=== PATIENT | male | born 1970 | race Caucasian/White ===

== ENCOUNTER 2017-06-30 06:11 | Emergency (ER) | payer OTHER ==
[~2017-06-30] VITALS: Ht 188 cm; Wt 108.9 kg
[~2017-06-30 06:11] MED LIST: FLUO-125 PO; FURO20TA PO; HYDRPOW88 XX; NOR10T PO; PROP60CA8 PO
[2017-06-30] MEDS ORDERED: TETRACAINE HCL 0.5% OPTH(EYE) SOLN 4ML EACHEYE ONE (06:45)
[2017-06-30] MEDS ORDERED: FLUORESCEIN SOD 1 MG TEST STRIP OP ONE (06:45)
[2017-06-30 07:13] VITALS: BP 148/72
== END 2017-06-30 08:18 | disposition home or self-care (01) ==
LOC: ER 06:11
DX: S05.02XA Injury of conjunctiva and corneal abrasion without foreign body, left eye, initial encounter (principal); S05.01XA Injury of conjunctiva and corneal abrasion without foreign body, right eye, initial encounter; H10.33 Unspecified acute conjunctivitis, bilateral; X58.XXXA Exposure to other specified factors, initial encounter; Y93.89 Activity, other specified; Y92.89 Other specified places as the place of occurrence of the external cause; Y99.8 Other external cause status

== ENCOUNTER 2019-01-01 17:30 | Emergency (ER) | payer OTHER ==
[~2019-01-01 17:30] MED LIST changes: +FURO1TAB33 PO; -FURO20TA PO; +PROP60CA34 PO; -PROP60CA8 PO
[2019-01-01] MEDS ORDERED: ACETAMINOPHEN 325 MG RECT SUPP PR ONE (20:04)
[2019-01-01] MEDS ORDERED: LORazepam 2MG/ML-1ML VIAL ONE (20:05)
== END 2019-01-01 18:10 | disposition left against medical advice (07) ==
LOC: ER 17:30
DX: R06.02 Shortness of breath (principal); Z53.21 Procedure and treatment not carried out due to patient leaving prior to being seen by health care provider

== ENCOUNTER 2019-02-11 10:48 | Emergency (ER) | payer OTHER ==
[~2019-02-11] VITALS: Ht 188 cm; Wt 113.4 kg
[~2019-02-11 10:48] MED LIST changes: -FLUO-125 PO; -FURO1TAB33 PO; -HYDRPOW88 XX; +POTA10TA51 PO; -PROP60CA34 PO
[2019-02-11] MEDS ORDERED: methylPREDNISolone SOD SUCC 125 MG/2 ML VL IV ONE (11:15)
[2019-02-11] MEDS ORDERED: IPRATROPIUM BROM 0.5 MG/2.5ML INH SOL NEB ONE ×2 (11:15→16:45)
[2019-02-11] MEDS ORDERED: ALBUTEROL SULF 2.5 MG/0.5ML(0.5%) NEB SOLN NEB ONE ×2 (11:15→16:45)
[2019-02-11] MEDS ORDERED: FUROSEMIDE 40 MG/4 ML VIAL IV ONE (11:30)
[2019-02-11 11:31] LABS: Basophils # (auto) 0 uL; Basophils % (auto) 0.4 % (0.0-2.0); Eosinophils # (auto) 0.2 uL; Eosinophils % (auto) 4.8 % (0.0-7.0); Hematocrit 35.6 % (41.0-53.0); Hemoglobin 12.4 g/dL (13.5-17.5); Lymphocytes # (auto) 0.9 uL; Lymphocytes % (auto) 21.3 % (10.0-50.0); Mean Corpuscular Hemoglobin 33.7 pg (28.0-32.0); Mean Corpuscular Hgb Conc. 34.9 g/dL (32.0-36.0); Mean Corpuscular Volume 96.7 fL (80.0-100.0); Monocytes # (auto) 0.3 uL; Monocytes % (auto) 8.1 % (0.0-12.0); Neutrophils # (auto) 2.7 uL; Neutrophils % (auto) 65.4 % (37.0-80.0); Nucleated Red Blood Cells % 0.1 %; Platelet Count (auto) 41 10^3/uL (140-450); Red Blood Cells 3.68 10^6/uL (4.5-5.90); Red Cell Distribution Width 17.7 % (11.8-14.3); White Blood Cell 4.1 10^3/uL (4.4-10.8)
[2019-02-11] MEDS ORDERED: LEVOFLOXACIN 500MG 100 ML IV ONE (11:45)
[2019-02-11 11:47] LABS: Alanine Aminotransferase 89 U/L (16-61); Albumin 2.7 g/dL (3.4-5.0); Anion Gap 8 (5-15); Aspartate Aminotransferase 121 U/L (15-37); BUN/Creatinine Ratio 18.1; Blood Urea Nitrogen 19 mg/dL (7-18); Calcium 8.2 mg/dL (8.5-10.1); Carbon Dioxide 26 mmol/L (21-32); Chloride 110 mmol/L (98-107); GFR African American 97 mL/min; GFR Non-African American 80 mL/min; Glucose 113 mg/dL (74-106); Potassium 3.3 mmol/L (3.5-5.1); Sodium 144 mmol/L (136-145)
[2019-02-11 11:52] LABS: Alkaline Phosphatase 148 U/L (45-117); Bilirubin, Total 3.3 mg/dL (0.2-1.0); Total Protein 6.1 g/dL (6.4-8.2)
[2019-02-11 12:06] LABS: Amylase 69 U/L (25-115); Lipase 105 U/L (73-393)
[2019-02-11 12:17] LABS: INR 1.32 (0.9-1.15); Partial Thromboplastin Time 31.4 sec (23.64-32.05)
[2019-02-11] MEDS ORDERED: HYDROmorphone HCL 2 MG/ML VL IV ONE (12:30)
[2019-02-11] MEDS ORDERED: ONDANSETRON HCL 4 MG/2 ML VIAL IV ONE (12:30)
[2019-02-11] MEDS ORDERED: MORPHINE SULFATE 4 MG/ML SYR/VIAL IV ONE (12:30)
[2019-02-11 18:13] VITALS: BP 137/59
[2019-02-11] MEDS ORDERED: ALBU0.5N2 IN (18:55)
[2019-02-11] MEDS ORDERED: FURO1TAB31 PO (18:55)
[2019-02-11] MEDS ORDERED: SPIR50TA2 PO (18:55)
[2019-02-11] MEDS ORDERED: POTASSIUM CHL 20 Meq TABLET PO ONE (19:00)
== END 2019-02-11 19:42 | disposition home or self-care (01) ==
LOC: ER 10:48
DX: J90 Pleural effusion, not elsewhere classified (principal); D69.6 Thrombocytopenia, unspecified; K74.60 Unspecified cirrhosis of liver; K72.10 Chronic hepatic failure without coma; R60.1 Generalized edema; Z87.442 Personal history of urinary calculi
CPT/HCPCS: 36415; 71250; 74176; 80053; 82140; 82150; 83605; 83690; 84484; 85025; 85610; 85730; 87040; 93005; 94640; 96365; 96375; 99284; J1170; J1940; J1956; J2405; J2930; J7611; J7644

== ENCOUNTER 2019-04-14 13:01 | Inpatient (IN) | payer OTHER ==
[~2019-04-14] VITALS: Ht 185.4 cm; Wt 114.5 kg
[~2019-04-14 13:01] MED LIST changes: +ALBU0.5N2 IN; +FURO1TAB31 PO; +SPIR50TA2 PO
[2019-04-14] MEDS ORDERED: ONDANSETRON HCL 4 MG/2 ML VIAL IV ONE (13:30)
[2019-04-14] MEDS ORDERED: PANTOPRAZOLE 40 MG/10 ML VIAL INJ IV ONE (13:30)
[2019-04-14 13:57] LABS: Eosinophils # (auto) 1.6 uL; Hematocrit 23.9 % (41.0-53.0); Hemoglobin 8.1 g/dL (13.5-17.5); Lymphocytes # (auto) 3.6 uL; Lymphocytes % (auto) 20.6 % (10.0-50.0); Mean Corpuscular Hemoglobin 33.8 pg (28.0-32.0); Nucleated Red Blood Cells % 0.1 %; Platelet Count (auto) 93 10^3/uL (140-450)
[2019-04-14 13:59] LABS: Basophils # (auto) 0 uL; Basophils % (auto) 0.3 % (0.0-2.0); Eosinophils % (auto) 9.4 % (0.0-7.0); Mean Corpuscular Hgb Conc. 33.9 g/dL (32.0-36.0); Mean Corpuscular Volume 99.5 fL (80.0-100.0); Monocytes # (auto) 1.2 uL; Monocytes % (auto) 6.9 % (0.0-12.0); Neutrophils % (auto) 62.8 % (37.0-80.0); Red Cell Distribution Width 17.3 % (11.8-14.3); White Blood Cell 17.6 10^3/uL (4.4-10.8)
[2019-04-14 14:15] LABS: Albumin 1.8 g/dL (3.4-5.0); BUN/Creatinine Ratio 27.7; Calcium 6.7 mg/dL (8.5-10.1); INR 1.58 (0.9-1.15); Partial Thromboplastin Time 36.2 sec (23.64-32.05); Potassium 4.4 mmol/L (3.5-5.1)
[2019-04-14 14:20] LABS: Bilirubin, Total 2.9 mg/dL (0.2-1.0); Total Protein 4.3 g/dL (6.4-8.2)
[2019-04-14] MEDS: OCTREOTIDE ACETATE 500 MCG in SODIUM CHL 0.9% 99 ML IV SCH ×2 (14:27→23:25)
[2019-04-14] MEDS ORDERED: ONDANSETRON HCL 4 MG/2 ML VIAL IV PRN (14:45)
[2019-04-14] MEDS ORDERED: MORPHINE SULF INJ 2 MG/ML SYRINGE 1ML IV PRN ×2 (14:45)
[2019-04-14] MEDS ORDERED: NITROGLYCERIN 0.4 MG SL TAB SL PRN (14:45)
[2019-04-14] MEDS ORDERED: LACTULOSE 20Gm/30ML SOLN PO ONE (14:45)
[2019-04-14] MEDS: PIPERACILLIN-TAZOB 3.375GM 100 ML IV SCH ×2 (15:57→18:32)
[2019-04-14] MEDS ORDERED: FUROSEMIDE 40 MG/4 ML VIAL IV ONE (16:45)
[2019-04-14] MEDS ORDERED: IPRATROPIUM BROM 0.5 MG/2.5ML INH SOL NEB PRN (16:45)
[2019-04-14] MEDS ORDERED: ALBUTEROL SULF 2.5 MG/0.5ML(0.5%) NEB SOLN NEB PRN (16:45)
[2019-04-14] MEDS: PROCHLORPERAZINE EDISYLATE 5 MG/ML 2ML VIAL IV PRN (16:58)
[2019-04-14 17:09] LABS: Basophils # (auto) 0.1 uL; Basophils % (auto) 0.6 % (0.0-2.0); Eosinophils # (auto) 1.3 uL; Eosinophils % (auto) 7.5 % (0.0-7.0); Hemoglobin 8.2 g/dL (13.5-17.5); Lymphocytes # (auto) 3.4 uL; Lymphocytes % (auto) 19.1 % (10.0-50.0); Mean Corpuscular Hemoglobin 33.9 pg (28.0-32.0); Mean Corpuscular Hgb Conc. 32.8 g/dL (32.0-36.0); Mean Corpuscular Volume 103.3 fL (80.0-100.0); Monocytes # (auto) 1.1 uL; Neutrophils # (auto) 11.7 uL; Neutrophils % (auto) 66.8 % (37.0-80.0); Nucleated Red Blood Cells % 0.1 %; Platelet Count (auto) 108 10^3/uL (140-450); Red Blood Cells 2.42 10^6/uL (4.5-5.90); Red Cell Distribution Width 17.6 % (11.8-14.3); White Blood Cell 17.5 10^3/uL (4.4-10.8)
--- NOTE | 2019-04-14 18:38 | NUR ---
Respiratory note: NO PRN TX GIVEN AT THIS TIME, NOT INDICATED. PT DENIES SOB OR TAKING TXS OR MDI'S AT HOME. SPO2 95% ON 4L N/C, HR 108, RR 17. BREATH SOUNDS DIMINISHED THROUGHOUT.
[2019-04-14 18:39] VITALS: BP 121/49
[2019-04-14 19:45] VITALS: BP 125/66
--- NOTE | 2019-04-14 19:45 | NUR ---
Admit to [facility] admitted to [facility] via gurney on fiberglass roller, and portable 02. Patient transferred to bed, connected to unit monitoring and 3L oxygen via nasal cannula, and weighed by bed scale. Left and right forearm IV - clean/dry/intact. Patient oriented to ADITI MEDRANO, primary RN, unit, room, bed, and unit policies regarding patient care and visiting hours. All questions and concerns addressed, patient verbalized understanding.
[2019-04-14] MEDS ORDERED: HYDR50TA69 PO (20:58)
--- NOTE | 2019-04-14 21:30 | NUR ---
HOSPITALIST PAGED HOSPITALIST AWAITING CALL BACK.
--- NOTE | 2019-04-14 21:35 | NUR ---
HOSPITALIST HOSPITALIST CALLED BACK, MADE AWARE OF PATIENT BEING RESTLESS AND AGITATED. GAVE ORDERS TO CONTINUE HOME MEDICATION - HYDROXYZINE HCL 50ML PO. WILL CONTINUE TO MONITOR.
[2019-04-14] MEDS: PANTOPRAZOLE 40 MG/10 ML VIAL INJ IV SCH (22:04)
[2019-04-14] MEDS: hydrOXYzine 25 MG TAB or CAP PO PRN (22:05)
[2019-04-14] MEDS ORDERED: OCTREOTIDE ACETATE 500 MCG/ML VL ONE (23:19)
[2019-04-15] VITALS (24 sets, daily range): BP systolic 97–140; BP diastolic 27–60
[2019-04-15 05:45] LABS: Basophils # (auto) 0.1 uL; Monocytes # (auto) 1.5 uL; Monocytes % (auto) 8.1 % (0.0-12.0); Nucleated Red Blood Cells % 0.1 %
[2019-04-15 05:47] LABS: Basophils % (auto) 0.4 % (0.0-2.0); Eosinophils # (auto) 1.8 uL; Eosinophils % (auto) 9.7 % (0.0-7.0); Lymphocytes # (auto) 3.7 uL; Lymphocytes % (auto) 19.9 % (10.0-50.0); Mean Corpuscular Hemoglobin 34.7 pg (28.0-32.0); Mean Corpuscular Hgb Conc. 34.8 g/dL (32.0-36.0); Mean Corpuscular Volume 99.6 fL (80.0-100.0); Neutrophils # (auto) 11.6 uL; Neutrophils % (auto) 61.9 % (37.0-80.0); Platelet Count (auto) 84 10^3/uL (140-450); Red Blood Cells 2.01 10^6/uL (4.5-5.90); Red Cell Distribution Width 17.3 % (11.8-14.3); White Blood Cell 18.6 10^3/uL (4.4-10.8)
[2019-04-15 05:53] LABS: INR 1.65 (0.9-1.15)
--- NOTE | 2019-04-15 06:00 | NUR ---
PAGED HOSPITALIST AWAITING CALL BACK.
[2019-04-15 06:01] LABS: Calcium 6.3 mg/dL (8.5-10.1); Potassium 4.5 mmol/L (3.5-5.1)
[2019-04-15 06:03] LABS: BUN/Creatinine Ratio 25.2
[2019-04-15] MEDS: PIPERACILLIN-TAZOB 3.375GM 100 ML IV SCH ×5 (06:13→23:48)
--- NOTE | 2019-04-15 06:48 | NUR ---
PAGED HOSPITALIST AWAITING CALL BACK.
--- NOTE | 2019-04-15 07:10 | NUR ---
END OF SHIFT REPORT GIVEN TO DAY SHIFT RN. CARE ENDORSED.
--- NOTE | 2019-04-15 07:30 | NUR ---
RECEIVED PATIENT SITTING UP IN THE BED, A/O TIMES 4, O2 AT 3L BY N/C, WHICH HE TAKES ON AND OFF, STATES HE GETS UP TO THE BR, OCTREOTIDE INFUSING INTO THE LAC AT 10ML/HR BY THE IV PUMP, ANTIBIOTICS INFUSING INTO THE RAC AT 34ML/HR BY THE IV PUMP DENIES PAIN AND STATES HE HAS NOT HAD ANY BLEEDING AT THIS TIME
--- NOTE | 2019-04-15 08:05 | NUR ---
DR FULLER GI IN TO SEE THE PATIENT AND ORDERED 1 UNIT OF PRBCS AND 3 UNITS OF FFP TO BE GIVEN AND STATED HE IS GOING TO TRY AND DO A EGD TONIGHT
[2019-04-15] MEDS ORDERED: PHYTONADIONE (VIT K)10 MG/ML 1ML VIAL IV ONE (08:15)
--- NOTE | 2019-04-15 09:10 | NUR ---
I UNIT OF PRBC, EXPLAIN TO THE PATIENT THE POSSIBLE REACTIONS VERBALIZED UNDERSTANDINGS STARTED
--- NOTE | 2019-04-15 09:25 | NUR ---
CONSENTS SIGNED FOR EGD AND THORACENTESIS
[2019-04-15] MEDS: OCTREOTIDE ACETATE 500 MCG in SODIUM CHL 0.9% 99 ML IV SCH ×2 (09:56→20:12)
[2019-04-15] MEDS ORDERED: FUROSEMIDE 40 MG/4 ML VIAL IV SCH (10:00)
--- NOTE | 2019-04-15 10:15 | NUR ---
FAMILY IN TO VISIT WITH THE PATIENT
[2019-04-15] MEDS: PANTOPRAZOLE 40 MG/10 ML VIAL INJ IV SCH ×2 (10:21→22:00)
--- NOTE | 2019-04-15 10:21 | NUR ---
EXPLAIN MEDICATIONS TO THE PATIENT REGARDING THE DOSAGE, USAGE AND THE SIDE EFFECTS, VERBALIZED THAT HE UNDERSTOOD AND MEDS GIVEN ORDERED
[2019-04-15] MEDS: hydrOXYzine 25 MG TAB or CAP PO PRN ×2 (10:32→22:01)
--- NOTE | 2019-04-15 10:32 | NUR ---
VISTARIL GIVEN FOR HIS RESTLESS LEG AND ANXIETY
--- NOTE | 2019-04-15 10:45 | NUR ---
PLACED 22G SALINE LOCK TO THE RT WRIST 1/ ATTEMPTS USING STERILE TECHNIQUE
--- NOTE | 2019-04-15 11:00 | NUR ---
DR PRESLEY HERE AND PERFORMED A RIGHT CHEST THORACENTESIS ON THE PATIENT AND REMOVED [id number] OF FLUID WHICH WAS SENT TO THE LAB FOR TEST
--- NOTE | 2019-04-15 11:25 | NUR ---
DR EARLY IN TO SEE THE PATIENT
--- NOTE | 2019-04-15 12:30 | NUR ---
FIRST UNIT OF FFP BEING STARTED
[2019-04-15] MEDS: FUROSEMIDE 40 MG/4 ML VIAL IV SCH (12:49)
--- NOTE | 2019-04-15 13:30 | NUR ---
PATIENT SITTING UP IN THE BED WITH EYES CLOSED APPEARS TO BE RESTING AT THIS TIME
[2019-04-15 13:53] LABS: Basophils # (auto) 0.1 uL; Basophils % (auto) 0.6 % (0.0-2.0); Eosinophils # (auto) 2.1 uL; Hemoglobin 8.1 g/dL (13.5-17.5); Lymphocytes # (auto) 3.6 uL; Mean Corpuscular Volume 98.7 fL (80.0-100.0)
[2019-04-15 13:55] LABS: Eosinophils % (auto) 11.1 % (0.0-7.0); Hematocrit 23.7 % (41.0-53.0); Lymphocytes % (auto) 19.3 % (10.0-50.0); Mean Corpuscular Hemoglobin 33.8 pg (28.0-32.0); Mean Corpuscular Hgb Conc. 34.2 g/dL (32.0-36.0); Monocytes # (auto) 1.4 uL; Monocytes % (auto) 7.2 % (0.0-12.0); Neutrophils # (auto) 11.6 uL; Neutrophils % (auto) 61.8 % (37.0-80.0); Nucleated Red Blood Cells % 0.1 %; Platelet Count (auto) 96 10^3/uL (140-450); Red Cell Distribution Width 18.6 % (11.8-14.3); White Blood Cell 18.7 10^3/uL (4.4-10.8)
--- NOTE | 2019-04-15 14:30 | NUR ---
GETTING UP TO THE SIDE OF THE BED TO URINATE , NO HELP NEEDED
--- NOTE | 2019-04-15 14:41 | NUR ---
Respiratory note: PT ASSESSED FOR PRN. PT AWAKE, ALERT AND RESPONSIVE. NO DISTRESS AT THIS TIME. B/S ARE CLEAR AND DIMINISHED THROUGHOUT. NO COMPLAINT OF SOB. NO TREATMENT INDICATED AT THIS TIME. INFORMED PT TO HIT CALL LIGHT IF BECOMES SOB AND RT WILL BE PAGED.
--- NOTE | 2019-04-15 15:00 | NUR ---
FIRST UNIT OF FFP FINISHED AND NO REACTION
--- NOTE | 2019-04-15 15:30 | NUR ---
SECOND UNIT OF FFP BEING STARTED
[2019-04-15 15:46] LABS: Urine WBC None Seen /hpf (0 - 3)
--- NOTE | 2019-04-15 16:10 | NUR ---
SITTING UP IN BED STATES HE FEELS A LITTLE BETTER EXPRESS TO HIM THAT I DON'T KNOW IF HE IS GOING TO HAVE THE EGD DONE TONIGHT, BECAUSE THE GI LAB HAD A FULL SCHEDULE
[2019-04-15 16:11] LABS: Urine Bacteria NONE SEEN /hpf (None Seen); Urine Blood 2+ /uL (Negative); Urine Specific Gravity 1.006 (1.001-1.035)
--- NOTE | 2019-04-15 16:34 | NUR ---
FAMILY BACK TO VISIT
--- NOTE | 2019-04-15 16:47 | NUR ---
CALLED THE GI LAB AND STATED THE PATIENT WILL PROBABLY GO TONIGHT FOR EGD ABOUT 1859, INFORMED THE AND PATIENT
--- NOTE | 2019-04-15 17:45 | NUR ---
BACK TO VISIT WITH THE PATIENT
--- NOTE | 2019-04-15 17:52 | NUR ---
MOM AND DAD INTO SEE THE PATIENT
--- NOTE | 2019-04-15 18:16 | NUR ---
SECOND UNIT OF FFP FINISHED AND PATIENT HAD NO REACTION, ANTIBIOTICS INFUSING INTO THE RT WRIST BY THE IV PUMP, PATIENT IS GETTING ANXIOUS ABOUT WAITING FOR THE EGD, A/O TIMES 4, MOM AND DAD AT THE BEDSIDE, ANTIBIOTICS INFUSING INTO THE RT WRIST BY THE IV, O2 BY R/A, RAC WITH BLOOD PRODUCTS BEING TRANSFUSED USING THE IV PUMP, OCTREOTIDE AT 10ML/HR INFUSING BY THE IV PUMP, PATIENT STATES HIS LEGS ARE GETTING RESTLESS, APPLIED SCD AND WARM BLANKET, STATES NOT PAIN , LAST UNIT OF FFP BEING GIVEN, WILL CONTINUE TO MONITOR AND GIVE REPORT TO THE NEXT SHIFT
--- NOTE | 2019-04-15 19:10 | NUR ---
OPENING SHIFT RECEIVED REPORT FROM DAY SHIFT RN. ASSUMED CARE OF PATIENT. PATIENT IN BED WATCHING TV WITH NO SIGN OR SYMPTOMS OF SOB, PAIN OR DISTRESS. CURRENTLY ON ROOM AIR, 02 SAT - 91%. RIGHT ANTECUBITAL, RIGHT WRIST , AND LEFT ANTECUBITAL IV - CLEAN/DRY/INTACT. UPDATED PATIENT ON PLAN OF CARE. BED IN LOWEST POSITION, SIDE RAILS UP X2, CALL LIGHT WITHIN REACH. WILL CONTINUE TO MONITOR.
[2019-04-15] MEDS ORDERED: fentaNYL CITRATE 100 MCG/2 ML VL ONE ×3 (20:04→20:13)
[2019-04-15] MEDS ORDERED: LIDOCAINE VISCOUS 2% 15ML UD ONE (20:04)
[2019-04-15] MEDS ORDERED: SODIUM CHLORIDE LOCK 10 ML ONE ×2 (20:04)
[2019-04-15] MEDS ORDERED: MIDAZOLAM HCL 1MG/1ML-2 ML VIAL ONE (20:11)
[2019-04-15] MEDS ORDERED: LACTULOSE 20Gm/30ML SOLN PO ONE (20:15)
--- NOTE | 2019-04-15 20:40 | NUR ---
DR. FULLER DOCTOR AT BEDSIDE PREPARING FOR PROCEDURE.
[2019-04-15] MEDS: MIDAZOLAM HCL 1MG/1ML-2 ML VIAL ONE ×3 (20:47→20:53)
[2019-04-15] MEDS: fentaNYL CITRATE 100 MCG/2 ML VL ONE ×2 (20:47→20:53)
--- NOTE | 2019-04-15 21:00 | NUR ---
END OF PROCEDURE - EGD PATIENT REASSESSED AT THIS TIME. PATIENT SLEEPING WITH NO SIGNS OR SYMPTOMS OF SOB, PAIN OR DISTRESS. WILL CONTINUE TO MONITOR.
--- NOTE | 2019-04-15 21:00 | NUR ---
Respiratory note: PT ASSESSED FOR PRN MED NEB TX. HR 100, RR 20, SPO2 97% ON RA. NO SIGNS OF ANY RESPIRATORY DISTRESS NOTED. ADVISED PT TO CALL IF TX IS NEEDED. RT NAME AND PAGER NUMBER WRITTEN ON PT'S BOARD.
--- NOTE | 2019-04-15 21:05 | NUR ---
VERBAL ORDERS READ BACK AND VERIFIED FROM FOR PROPANOLOL 10MG TID,NPO FOR THE NIGHT EXCEPT FOR MEDICATIONS AND START CLEAR LIQUIDS TOMORROW AM. WILL FOLLOW THROUGH.
[2019-04-15 21:12] LABS: INR 1.49 (0.9-1.15)
[2019-04-15] MEDS ORDERED: PROPRANOLOL HCL 20 MG TAB ONE (21:55)
[2019-04-15] MEDS ORDERED: LACTULOSE 20Gm/30ML SOLN ONE (21:55)
[2019-04-15] MEDS: PROPRANOLOL HCL 20 MG TAB PO SCH (22:01)
[2019-04-15] MEDS: SODIUM CHLORIDE 0.9% 1,000 ML IV SCH (22:07)
[2019-04-16] VITALS (12 sets, daily range): BP systolic 94–127; BP diastolic 39–53
[2019-04-16] MEDS: SODIUM CHLORIDE 0.9% 1,000 ML IV SCH (04:15)
[2019-04-16 04:49] LABS: Basophils # (auto) 0 uL; Basophils % (auto) 0.2 % (0.0-2.0); Eosinophils % (auto) 10.7 % (0.0-7.0); Hematocrit 18.9 % (41.0-53.0); Lymphocytes % (auto) 21.6 % (10.0-50.0); Mean Corpuscular Hemoglobin 34.1 pg (28.0-32.0); Mean Corpuscular Hgb Conc. 34.6 g/dL (32.0-36.0); Mean Corpuscular Volume 98.4 fL (80.0-100.0); Monocytes # (auto) 0.7 uL; Monocytes % (auto) 7.9 % (0.0-12.0); Neutrophils # (auto) 5.4 uL; Neutrophils % (auto) 59.6 % (37.0-80.0); Nucleated Red Blood Cells % 0.1 %; Platelet Count (auto) 59 10^3/uL (140-450); Red Blood Cells 1.92 10^6/uL (4.5-5.90); Red Cell Distribution Width 19.1 % (11.8-14.3); White Blood Cell 9.1 10^3/uL (4.4-10.8)
[2019-04-16 04:52] LABS: Hemoglobin 6.6 g/dL (13.5-17.5)
[2019-04-16 05:05] LABS: INR 1.47 (0.9-1.15); Partial Thromboplastin Time 36.6 sec (23.64-32.05)
[2019-04-16 05:06] LABS: Albumin 1.9 g/dL (3.4-5.0); BUN/Creatinine Ratio 28.9; Calcium 6.7 mg/dL (8.5-10.1); Potassium 3.7 mmol/L (3.5-5.1)
[2019-04-16 05:09] LABS: Bilirubin, Total 5.5 mg/dL (0.2-1.0); Total Protein 4.2 g/dL (6.4-8.2)
[2019-04-16] MEDS: OCTREOTIDE ACETATE 500 MCG in SODIUM CHL 0.9% 99 ML IV SCH ×2 (05:30→15:03)
--- NOTE | 2019-04-16 05:55 | NUR ---
Respiratory note: PRN MED NEB TX NOT INDICATED AT THIS TIME. NO SIGNS OR SYMPTOMS OF RESPIRTAORY DISTRESS NOTED. HR 75, RR 17, SPO2 97% ON 3 L NC, BS CLEAR. RN AT BEDSIDE. PT INFORMED TO HOT CALL BUTTON IF FEELING SOB OR WHEEZING.
[2019-04-16] MEDS: LACTULOSE 20Gm/30ML SOLN PO SCH ×2 (06:05→14:00)
[2019-04-16] MEDS: PIPERACILLIN-TAZOB 3.375GM 100 ML IV SCH ×2 (06:05→12:00)
[2019-04-16] MEDS: PROPRANOLOL HCL 20 MG TAB PO SCH ×2 (06:08→14:00)
--- NOTE | 2019-04-16 07:10 | NUR ---
Dr. Delcid at bedside. No new orders at this time.
--- NOTE | 2019-04-16 07:20 | NUR ---
DR. EARLY SPOKE TO DR. EARLY OVER THE PHONE. GAVE ORDERS TO TRANSFUSE ONE UNIT OF PRBC. TELEPHONE ORDERS READ BACK. WILL ENDORSE TO DAY SHIFT RN.
--- NOTE | 2019-04-16 08:00 | NUR ---
Opening Shift Note Assumed care of patient, awake and alert. Patient A&Ox4. Patient on the monitor. Patient on 3L NC saturation at 98%. IV left AC 20G running sandostatin at 10ml/hr, right AC 20G running blood at 100ml/hr, and right wrist 22G running Zosyn at 33.33ml/hr. All IV's patent, clean, dry, and intact. No S/S of distress/SOB or pain. Instructed on POC and to call for assist. Bed locked and in the lowest position, side rails up x2, Call light with in reach. Will continue to monitor.
--- NOTE | 2019-04-16 08:30 | NUR ---
Patient sitting up in bed eating breakfast independently. Patient on CLD. Patient denies any nausea at this time. Will continue to monitor.
[2019-04-16] MEDS: PANTOPRAZOLE 40 MG/10 ML VIAL INJ IV SCH (09:40)
[2019-04-16] MEDS: FUROSEMIDE 40 MG/4 ML VIAL IV SCH (09:45)
--- NOTE | 2019-04-16 10:00 | NUR ---
Medication dosages, usages, and side effects explained to Patient. Patient verbalized understanding. Will continue to monitor.
[2019-04-16] MEDS: PROCHLORPERAZINE EDISYLATE 5 MG/ML 2ML VIAL IV PRN (10:57)
--- NOTE | 2019-04-16 12:00 | NUR ---
Dr. Mayberry at bedside. Patient states he wants to go home today. Dr. Mayberry explained that we should keep him for 1 more day to monitor his status. Explained the risk of going home to early. Patient verbalized understanding. Patient still states he wants to go home today. Patient will sign AMA after blood transfusion is finished. Will continue to monitor.
[2019-04-16] MEDS ORDERED: PHYTONADIONE (VitK) ORAL Susp 1 MG/ML PO SCH (14:00)
[2019-04-16 14:13] LABS: Hemoglobin 7.6 g/dL (13.5-17.5)
[2019-04-16 14:15] LABS: Hematocrit 21.8 % (41.0-53.0)
--- NOTE | 2019-04-16 14:20 | NUR ---
Hemoglobin now 7.6. Patient wants to AMA. Dr. Mayberry notified. AMA paperwork and D/C instructions to be signed.
--- NOTE | 2019-04-16 15:00 | NUR ---
Patient AMA. Paperwork signed and in the chart. Patient prescription given to Patient. Patient instructed to follow up with PMD and to return if worse. Patient verbalized understanding. Patient IV's removed, catheters intact, pressure dressings placed, instructed to remove in 20mins. Patient wheeled out via wheel chair by Silvio MILLER. Patient denies any pain/SOB or distress upon discharge.
== END 2019-04-16 15:00 | disposition left against medical advice (07) ==
LOC: EDBD 13:01 → ER 13:01 → EDUNIT# 13:01 → TELE 13:02 → DOU IN ICU 19:45
PROVIDERS: ADMIT Internal Medicine; ATTEND Internal Medicine
PROC: 30233K1 Transfusion of Nonautologous Frozen Plasma into Peripheral Vein, Percutaneous Approach (ICD-10-PCS; 2019-04-15)
PROC: 30233N1 Transfusion of Nonautologous Red Blood Cells into Peripheral Vein, Percutaneous Approach (ICD-10-PCS; 2019-04-15)
PROC: 06L38CZ Occlusion of Esophageal Vein with Extraluminal Device, Via Natural or Artificial Opening Endoscopic (ICD-10-PCS; 2019-04-15)
PROC: 0W993ZZ Drainage of Right Pleural Cavity, Percutaneous Approach (ICD-10-PCS; principal; 2019-04-15 20:15)
DX: K74.69 Other cirrhosis of liver (principal); I85.11 Secondary esophageal varices with bleeding; D69.6 Thrombocytopenia, unspecified; D68.9 Coagulation defect, unspecified; E72.20 Disorder of urea cycle metabolism, unspecified; K76.6 Portal hypertension; D62 Acute posthemorrhagic anemia; K31.89 Other diseases of stomach and duodenum; K72.90 Hepatic failure, unspecified without coma; Z79.899 Other long term (current) drug therapy; Z80.0 Family history of malignant neoplasm of digestive organs; Z81.1 Family history of alcohol abuse and dependence; Z53.29 Procedure and treatment not carried out because of patient's decision for other reasons
CPT/HCPCS: 10022; 32555; 36415; 36600; 43244; 71045; 74176; 76604; 76942; 80048; 80053; 81001; 82140; 82805; 83986; 84484; 85014; 85018; 85025; 85610; 85730; 86850; 86900; 86901; 86920; 87040; 87070; 87086; 87205; 89051; 93005; 96365; 96366; 96375; C9113; G0378; J2250; J2405; J2543; J3430

== ENCOUNTER 2019-05-02 04:39 | Emergency (ER) | payer OTHER ==
[~2019-05-02] VITALS: Ht 188 cm; Wt 117.9 kg
[~2019-05-02 04:39] MED LIST changes: +HYDR50TA69 PO
[2019-05-02] MEDS ORDERED: ONDANSETRON HCL 4 MG/2 ML VIAL IV ONE ×2 (07:15→09:45)
[2019-05-02 07:35] LABS: Eosinophils # (auto) 0.3 uL; Hematocrit 25.6 % (41.0-53.0); Lymphocytes # (auto) 0.9 uL; Mean Corpuscular Volume 91.6 fL (80.0-100.0); Monocytes # (auto) 0.5 uL; Neutrophils # (auto) 4.1 uL; Neutrophils % (auto) 69.2 % (37.0-80.0)
[2019-05-02 07:37] LABS: Basophils # (auto) 0 uL; Basophils % (auto) 0.8 % (0.0-2.0); Eosinophils % (auto) 5.8 % (0.0-7.0); Hemoglobin 8.4 g/dL (13.5-17.5); Lymphocytes % (auto) 15.1 % (10.0-50.0); Mean Corpuscular Hemoglobin 30.1 pg (28.0-32.0); Mean Corpuscular Hgb Conc. 32.8 g/dL (32.0-36.0); Monocytes % (auto) 9.1 % (0.0-12.0); Platelet Count (auto) 57 10^3/uL (140-450); Red Blood Cells 2.79 10^6/uL (4.5-5.90)
[2019-05-02 07:47] LABS: Red Cell Distribution Width 20.1 % (11.8-14.3)
[2019-05-02 07:56] LABS: Anion Gap 7 (5-15); Blood Urea Nitrogen 17 mg/dL (7-18); Calcium 6.8 mg/dL (8.5-10.1); Carbon Dioxide 20 mmol/L (21-32); Chloride 108 mmol/L (98-107); Glucose 141 mg/dL (74-106); Magnesium 1.7 mg/dL (1.6-2.6); Sodium 135 mmol/L (136-145)
[2019-05-02 08:02] LABS: Alanine Aminotransferase 104 U/L (16-61); Alkaline Phosphatase 184 U/L (45-117); Aspartate Aminotransferase 86 U/L (15-37); BUN/Creatinine Ratio 18.7; Bilirubin, Total 2.9 mg/dL (0.2-1.0); GFR African American 115 mL/min; GFR Non-African American 95 mL/min; Total Protein 4.7 g/dL (6.4-8.2)
[2019-05-02] MEDS ORDERED: PIPERACILLIN-TAZOB 3.375GM 100 ML IV ONE (08:15)
[2019-05-02] MEDS ORDERED: HYDROmorphone HCL 2 MG/ML VL IV ONE (09:45)
[2019-05-02 11:30] VITALS: BP 113/68
== END 2019-05-02 12:35 | disposition home or self-care (01) ==
LOC: EDBD 04:39 → ER 04:39
DX: K52.9 Noninfective gastroenteritis and colitis, unspecified (principal); E83.51 Hypocalcemia; K76.0 Fatty (change of) liver, not elsewhere classified; K74.60 Unspecified cirrhosis of liver; E43 Unspecified severe protein-calorie malnutrition; Z68.33 Body mass index [BMI] 33.0-33.9, adult; Z79.899 Other long term (current) drug therapy
CPT/HCPCS: 36415; 74176; 76705; 80053; 83605; 83735; 84484; 85025; 86850; 86900; 86901; 87040; 93005; 96374; 96375; 96376; 99284; J1170; J2405

== ENCOUNTER 2019-06-06 16:32 | Emergency (ER) | payer BC, OTHER ==
[~2019-06-06] VITALS: Ht 188 cm; Wt 106.6 kg
[2019-06-06 18:27] LABS: Basophils # (auto) 0 uL; Basophils % (auto) 0.4 % (0.0-2.0); Eosinophils # (auto) 0.5 uL; Eosinophils % (auto) 7.4 % (0.0-7.0); Hematocrit 28.3 % (41.0-53.0); Hemoglobin 9.5 g/dL (13.5-17.5); Lymphocytes # (auto) 0.9 uL; Lymphocytes % (auto) 13.6 % (10.0-50.0); Mean Corpuscular Hemoglobin 30.4 pg (28.0-32.0); Mean Corpuscular Hgb Conc. 33.7 g/dL (32.0-36.0); Mean Corpuscular Volume 90.4 fL (80.0-100.0); Monocytes # (auto) 0.8 uL; Neutrophils # (auto) 4.4 uL; Neutrophils % (auto) 66.6 % (37.0-80.0); Nucleated Red Blood Cells % 0.1 %; Platelet Count (auto) 95 10^3/uL (140-450); Red Blood Cells 3.14 10^6/uL (4.5-5.90); Red Cell Distribution Width 19.9 % (11.8-14.3); White Blood Cell 6.6 10^3/uL (4.4-10.8)
[2019-06-06 18:45] LABS: Calcium 7.7 mg/dL (8.5-10.1); Potassium 4.4 mmol/L (3.5-5.1)
[2019-06-06] MEDS ORDERED: fentaNYL CITRATE 100 MCG/2 ML VL IV ONE (18:45)
[2019-06-06] MEDS ORDERED: IOHEXOL 300 MG/ML 100ML BOTTLE IJ ONE (18:45)
[2019-06-06] MEDS ORDERED: KETOROLAC TROMETH 30 MG/ML 1ML VIAL IV ONE (18:45)
[2019-06-06 18:58] LABS: BUN/Creatinine Ratio 16.3; Bilirubin, Total 26.8 mg/dL (0.2-1.0); Total Protein 4.9 g/dL (6.4-8.2)
[2019-06-06] MEDS ORDERED: ONDANSETRON HCL 4 MG/2 ML VIAL IV ONE ×2 (19:00→23:45)
[2019-06-06 19:10] LABS: Urine Amorphous Crystal FEW /hpf (None Seen); Urine Bacteria FEW /hpf (None Seen); Urine Blood Negative /uL (Negative); Urine Mucus FEW (None Seen); Urine Specific Gravity 1.021 (1.001-1.035); Urine WBC 4 /hpf (0 - 3)
[2019-06-06 19:11] LABS: Alcohol, Urine < 3.0 mg/dL (0-5); Amphetamine Screen, Urine NEGATIVE (NEGATIVE); Barbiturate Scree,Urine NEGATIVE (NEGATIVE); Benzodiazephine Screen, Urine NEGATIVE (NEGATIVE); Cannabinoid Screen, Urine NEGATIVE (NEGATIVE); Cocaine Screen, Urine NEGATIVE (NEGATIVE); Opiate Scree,Urine NEGATIVE (NEGATIVE); Phencyclidine Screen, Urine NEGATIVE (NEGATIVE)
[2019-06-06 19:32] LABS: INR 1.62 (0.9-1.15); Partial Thromboplastin Time 38.1 sec (23.64-32.05)
[2019-06-06] MEDS ORDERED: LEVOFLOXACIN 750MG 150 ML IV ONE (21:45)
[2019-06-06] MEDS ORDERED: LACTULOSE 20Gm/30ML SOLN PO ONE (21:45)
[2019-06-06] MEDS ORDERED: HYDROmorphone HCL 2 MG/ML VL IV ONE (23:45)
[2019-06-07] VITALS: BP 152/84
== END 2019-06-07 00:41 | disposition home or self-care (01) ==
LOC: ER 16:32
DX: K74.60 Unspecified cirrhosis of liver (principal); E72.20 Disorder of urea cycle metabolism, unspecified; R60.1 Generalized edema; K52.9 Noninfective gastroenteritis and colitis, unspecified; K72.90 Hepatic failure, unspecified without coma; R94.5 Abnormal results of liver function studies; Z79.899 Other long term (current) drug therapy
CPT/HCPCS: 36415; 74177; 80053; 80307; 80320; 81001; 82140; 85025; 85610; 85730; 86850; 86900; 86901; 93005; 96365; 96366; 96375; 96376; 99284; J1170; J1956; J2405; J3010; J7030; Q9967; J7060